=== PATIENT | female | born 1955 | race Caucasian/White ===

== ENCOUNTER 2020-08-26 09:53 | Outpatient (CLI) | payer MEDICARE, SELFPAY ==
--- NOTE | 2020-08-26 10:03 | CT_ITS ---
WS: [id number] LDCT LUNG CANCER SCREENING TECHNIQUE: Noncontrast CT of the chest with coronal and sagittal reformatted images. CLINICAL INFORMATION: HX OF TOBACCO USE COMPARISON: None. DLP: 54.98 mGy.cm DIvol: 1.[address] scans at [facility] use at least one of these dose optimization techniques: automat ed exposure control; mA and/or kV adjustment per patient size (includes targeted exams where dose is matched to clinical indication); or iterative reconstruction. FINDINGS: No suspicious pulmonary parenchymal opacities. Slight bibasilar atelectasis. No focal pneumonia or pl eural fluid. No mediastinal or hilar lymphadenopathy. Mild aortic calcification. Coronary calcificati on. Left adrenal nodule unchanged from 9 29,016. Tiny esophageal hiatal hernia. Mild thoracic kyphosi s. Hypertrophic changes thoracic spine. CT/CT lung screening [id number] IMPRESSION: LUNG-RADS: 2-Benign Appearance or Behavior FOLLOW UP: 12 Month: Continue annual screening with LDCT
--- NOTE | 2020-08-26 10:52 | MM_ITS ---
WS: [id number] BILATERAL DIGITAL SCREENING MAMMOGRAPHY WITH CAD CLINICAL INFORMATION: SCREENING HISTORY: Screening mammogram. No current complaints. COMPARISON: TECHNIQUE: Bilateral CC and MLO views. FINDINGS: Scattered fibroglandular densities bilaterally. Stable ovoid nodule posterior outer right breast unch anged. No suspicious focal mass, asymmetry, calcifications, or architectural distortion. No evidence of malignancy. MM/[place] [id number] IMPRESSION: BI-RADS: 2-Benign FOLLOW UP: 1 Year Follow-up Recommend return to annual screening mammography.
== END 2020-08-26 09:54 | disposition home or self-care (01) ==
PROVIDERS: PCP Internal Medicine; Visit Provider Internal Medicine
DX: Z12.31 Encounter for screening mammogram for malignant neoplasm of breast (principal); Z12.2 Encounter for screening for malignant neoplasm of respiratory organs; Z87.891 Personal history of nicotine dependence; R91.1 Solitary pulmonary nodule
CPT/HCPCS: 71271; 77067

== ENCOUNTER 2022-08-26 16:00 | Outpatient (CLI) | payer MEDICARE, OTHER, SELFPAY ==
--- NOTE | 2022-08-26 16:16 | XR_ITS ---
WS: [id number] XR chest 2V* [id number] REASON FOR EXAM: DYSPNEA ON EXERTION FINDINGS: The heart and mediastinum are within normal limits. Calcified granulomatous disease bilaterally. No active pulmonary parenchymal or pleural disease is noted. Moderate change of degenerative spondylosis in the mid and lower thoracic spine. XR/XR chest 2V* [id number] IMPRESSION: No acute chest abnormality.
== END 2022-08-26 16:01 | disposition home or self-care (01) ==
LOC: RAD 16:09
PROVIDERS: PCP Nurse Practitioner Family; Visit Provider Nurse Practitioner Family
DX: R06.09 Other forms of dyspnea (principal)
CPT/HCPCS: 71046

== ENCOUNTER 2022-09-03 10:55 | Outpatient (CLI) | payer MEDICARE, OTHER, SELFPAY ==
--- NOTE | 2022-09-03 11:04 | MR_ITS ---
WS: [id number] MRI BRAIN WITH AND WITHOUT CONTRAST HISTORY: DIABETES MELLITUS TYPE 2. HEADACHE, UNSPECIFIED COMPARISON: None available. TECHNIQUE: Multiplanar imaging performed through the brain with MultiHance 20 ml's IV. No acute infarcts are seen. Cardona-white matter differentiation is well preserved. There are a few scat tered T2 and FLAIR signal hyperintensities throughout the supratentorial white matter. Not unusual fo r this age group. No large territory infarct and no hemorrhage. No significant volume loss or atrophy . No susceptibility artifacts or prior lacunar infarcts. Ventricles and extra-axial spaces are normal. Clivus and pituitary gland are normal. Visualized posterior fossa and brainstem are also normal. Postcontrast images are negative for masses or vascular malformations. Dural venous sinuses are normal. Paranasal sinuses: Well aerated with no significant disease. Mastoid air cells: Normal. Calvarium and scalp: Normal. MR/MR head wo/w con [id number] IMPRESSION: 1. No enhancing mass or acute infarct. 2. Mild small vessel ischemic disease. 3. No prior infarct. No atrophy.
[2022-09-03] MEDS: gadobenate dimeglumine 20 mL vial IV (12:48)
== END 2022-09-03 10:56 | disposition home or self-care (01) ==
LOC: RAD 10:58
PROVIDERS: PCP Nurse Practitioner Family; Visit Provider Nurse Practitioner Family
DX: E11.9 Type 2 diabetes mellitus without complications (principal); R51.9 Headache, unspecified
CPT/HCPCS: 70553; A9577

== ENCOUNTER → 2022-12-20 13:18 | Outpatient (BNVA) | payer MEDICARE, OTHER, SELFPAY | PROVIDERS: PCP Nurse Practitioner Family; Visit Provider Podiatrist Foot & Ankle Surgery | DX: M79.672 Pain in left foot; M65.28 Calcific tendinitis, other site; Z46.89 Encounter for fitting and adjustment of other specified devices; M76.62 Achilles tendinitis, left leg | CPT/HCPCS: 73630; 97760; 99203; L4397 ==

== ENCOUNTER 2022-12-20 13:49 | Outpatient (CLI) | payer MEDICARE, OTHER, SELFPAY | END 2022-12-20 13:50 | disposition home or self-care (01) | LOC: SPT 13:49 | PROVIDERS: PCP Nurse Practitioner Family; Visit Provider Podiatrist Foot & Ankle Surgery | DX: Z46.89 Encounter for fitting and adjustment of other specified devices (principal); M76.62 Achilles tendinitis, left leg | CPT/HCPCS: 97760; L4397 ==

== ENCOUNTER → 2023-03-21 13:42 | Outpatient (BNVA) | payer MEDICARE, OTHER, SELFPAY | PROVIDERS: PCP Nurse Practitioner Family; Visit Provider Podiatrist Foot & Ankle Surgery | DX: M65.28 Calcific tendinitis, other site (principal) | CPT/HCPCS: 99213 ==

== ENCOUNTER 2023-09-09 16:44 | Outpatient (CLI) | payer MEDICARE, OTHER, SELFPAY ==
[2023-09-09 17:13] LABS: INR 1.39 (0.8-1.2)
== END 2023-09-09 16:45 | disposition home or self-care (01) ==
PROVIDERS: PCP Nurse Practitioner Family; Visit Provider Orthopaedic Surgery
DX: M17.11 Unilateral primary osteoarthritis, right knee (principal)
CPT/HCPCS: 85610

== ENCOUNTER 2024-05-10 10:28 | Outpatient (CLI) | payer MEDICARE, OTHER, SELFPAY ==
--- NOTE | 2024-05-10 10:35 | MM_ITS ---
WS: [id number] BILATERAL SCREENING DIGITAL TOMOSYNTHESIS MAMMOGRAM WITH CAD HISTORY: SCREENING COMPARISON: 08/26/2020, 11/07/2018 Bilateral CC and MLO views with tomosynthesis and synthetic mammography submitted. Computer aided detection analyzed. Breast composition: The breasts are almost entirely fatty. No suspicious masses, microcalcifications or architectural distortion. Scattered benign calcifications. Lymph node posterior upper outer quadrant RIGHT breast. MM/MM scr BI tomosynthesis [id number] IMPRESSION: BI-RADS: 2 - Benign. FOLLOW UP: 1 Year Follow-up
== END 2024-05-10 10:29 | disposition home or self-care (01) ==
LOC: RAD 10:29
PROVIDERS: PCP Nurse Practitioner Family; Visit Provider Nurse Practitioner Family
DX: Z12.31 Encounter for screening mammogram for malignant neoplasm of breast (principal); R92.313 Mammographic fatty tissue density, bilateral breasts; R92.1 Mammographic calcification found on diagnostic imaging of breast; R59.0 Localized enlarged lymph nodes
CPT/HCPCS: 77063; 77067

== ENCOUNTER 2025-01-22 10:46 | Outpatient (CLI) | payer MEDICARE, OTHER, SELFPAY ==
--- NOTE | 2025-01-22 10:53 | MR_ITS ---
WS: [id number] MRI LUMBAR SPINE NONCONTRAST TECHNIQUE: Sagittal T1, T2 and STIR imaging. Axial T1 and T2 imaging. CLINICAL INFORMATION: LUMBAR SPONDYLOSIS COMPARISON: Outside MRI 2019 FINDINGS: Mild lumbar curve. No acute compression. Mild chronic compression superior endplate L5. Increased T1 and T2 signal in the L4-5 disc space similar to 2019 now with a chronic appearance likely due to mineralization and/or proteinaceous/fatty degeneration L1-L2: Normal. L2-L3: Moderate LEFT facet arthropathy. LEFT eccentric disc bulging with mild to moderate LEFT foraminal narrowing. RIGHT foramen is patent. L3-L4: Mild annular bulging. Mild central canal stenosis. Narrowing of the subarticular recess bilaterally. LEFT foraminal protrusion impinges the exiting LEFT L3 nerve root. Moderate LEFT foraminal narrowing. Moderate facet arthropathy. RIGHT foramen is patent. L4-L5: Mild disc bulging with moderate central canal stenosis. Moderate facet arthropathy with ligamentum flavum hypertrophy. Mild LEFT foraminal narrowing. RIGHT foramen is patent. L5-S1: Mild disc bulging with impingement of traversing RIGHT S1 nerve root in the subarticular recess. Mild RIGHT foraminal narrowing. Moderate to advanced facet arthropathy with ligamentum flavum hypertrophy. RIGHT to LEFT narrowing of the thecal sac Visualized pelvic bony structures: Normal. Paravertebral soft tissues: Normal. Cortical scarring RIGHT kidney. MR/MR lumbar spine wo con* [id number] IMPRESSION: 1. Chronic compression superior endplate L5 unchanged since 2019. 2. Moderate central canal stenosis L4-5 similar to 2019. 3. Mild central canal stenosis L5-S1 with RIGHT to LEFT narrowing of the theca l sac. This appears slightly progressed compared to previous. 4. Progressed disc bulging L5-S1 impinges the traversing S1 nerve root in the subarticular recess. Mild RIGHT L5-S1 foraminal narrowing. 5. LEFT foraminal protrusion L3-4 impinges the exiting LEFT L3 nerve root with moderate LEFT foraminal narrowing. This appears slightly progressed compared t o previous. 6. Advanced facet arthropathy L5-S1.
== END 2025-01-22 10:47 | disposition home or self-care (01) ==
LOC: RAD 10:47
PROVIDERS: PCP Nurse Practitioner Family; Visit Provider Nurse Practitioner Family
DX: M47.816 Spondylosis without myelopathy or radiculopathy, lumbar region (principal); M46.86 Other specified inflammatory spondylopathies, lumbar region; M51.87 Other intervertebral disc disorders, lumbosacral region; M48.061 Spinal stenosis, lumbar region without neurogenic claudication; M51.26 Other intervertebral disc displacement, lumbar region; M51.27 Other intervertebral disc displacement, lumbosacral region; M51.16 Intervertebral disc disorders with radiculopathy, lumbar region
CPT/HCPCS: 72148

== ENCOUNTER 2025-02-25 07:06 | Outpatient (CLI) | payer MEDICARE, OTHER, SELFPAY ==
--- NOTE | 2025-02-25 07:17 | US_ITS ---
WS: [id number] Complete ABDOMINAL ULTRASOUND HISTORY: ABD PAIN COMPARISON: CT 12/11/2015 Quality this examination is compromised by body habitus. Liver: 15.9 cm in length. Limited evaluation of the liver. No mass identified. Not all portions of the liver are well visualized. Portal Vein: Normal hepatopetal flow with monophasic waveform. Gallbladder: Normally distended gallbladder with no stones or wall thickening. CBD: 0.4 cm Pancreas: Partially visualized. Right kidney: 10.0 cm x 4.5 x 4.5 cm. Cortex:1.0 cm. Normal size kidney. Normal cortical thinning in the mid kidney. No obstruction. Left kidney: 9.7 cm x 5.5 cm x 5.4 cm. Cortex: 1.0 cm. Normal size and echogenicity. No hydronephrosis or mass. Spleen: 10.2 cm. Poorly visualized spleen due to body habitus. Aorta and IVC: Limited. US/US abdomen complete* [id number] Impression: 1. Normal gallbladder. 2. Mild hepatic steatosis. 3. Poorly visualized spleen. 4. No renal obstruction. 5. Focal cortical thinning mid lateral RIGHT kidney. Stable since 12/11/2015.
--- NOTE | 2025-02-25 07:17 | US_ITS ---
WS: [id number] US pelv w/transvag [id number] HISTORY: PELVIC PAIN COMPARISON: None available. Status post hysterectomy and RIGHT oophorectomy. There is no midline mass identified. Neither ovary is identified. There is no free fluid in the pelvis. US/US pelv w/transvag [id number] IMPRESSION: Status post hysterectomy. No pelvic mass is identified. Neither ovary identifie d.
== END 2025-02-25 07:07 | disposition home or self-care (01) ==
PROVIDERS: PCP Nurse Practitioner Family; Visit Provider Nurse Practitioner Family
DX: R10.20 Pelvic and perineal pain unspecified side (principal); Z90.710 Acquired absence of both cervix and uterus; R10.9 Unspecified abdominal pain; K76.0 Fatty (change of) liver, not elsewhere classified
CPT/HCPCS: 76700; 76830; 76856